=== PATIENT | male | born 1940 | race Caucasian/White ===

== ENCOUNTER 2021-02-09 08:47 | Emergency (ER) | payer MEDICARE, BC ==
[2021-02-09 09:13] VITALS: BP 154/70; PULSE 60
--- NOTE | 2021-02-09 09:34 | EDM.PDOC ---
ED HPI GENERAL MEDICAL PROBLEM - General Chief Complaint: Chest Pain Stated Complaint: CHEST PAIN Time Seen by Provider: 02/09/21 09:10 Source of Information: Reports: Patient History Limitations: Reports: No Limitations - History of Present Illness INITIAL COMMENTS - FREE TEXT/NARRATIVE: 81 YO WM PRESENTS TO ER COMPLAINING OF INTERMITTENT CHEST PAIN WHICH BEGAN AROUND 3AM TODAY. PT REPORTS PAIN WAS DIFFERENT THEN WHEN HE HAD HIS AMI IN 1992. PT REPORTS PAIN WAS MILD BUT COULDN'T DESCRIBE HOW IT FELT OTHER THAN IT FELT STRANGE IN HIS CHEST. PT REPORTS SYMPTOMS WENT AWAY BUT RETURNED THIS AM PROMPTING ER EVALUATION. PT DENIES TAKING ANY MEDICATION (NO NITRO) DURING THESE EVENTS. AT TIME OF INTERVIEW PATIENT DENIES ANY CHEST DISCOMFORT AND STATES IT RESOLVED AROUND 6AM TODAY. PT DENIES SHORTNESS OF BREATH, NO NAUSEA/VOMITING, NO RADIATING PAIN TO BACK OR ARMS. PT DENIES RECENT ILLNESS, NO COUGH/CONGESTION, NO FEVER/CHILLS, NO KNOWN COVID EXPOSURES. PT ALERT AND ORIENTED AND IN NO ACUTE DISTRESS. PT DROVE HIMSELF TO ER FOR EVALUATION. PT DENIES ANY ORTHOPNEA, NO PEDAL EDEMA, NO DYSPNEA ON EXERTION OR EXERCISE INTOLERANCE. Onset: Today Onset Time: 04:00 Location: Reports: Chest Quality: Reports: Ache Severity: Mild Improves with: Reports: None Worsens with: Reports: None Associated Symptoms: Reports: No Other Symptoms, Chest Pain. Denies: Cough, Diaphoresis, Fever/Chills, Nausea/Vomiting, Shortness of Breath, Weakness - Related Data Allergies Allergy/AdvReac Type Severity Reaction Status Date / Time No Known Drug Allergies Allergy Cannot Verified 02/09/21 09:14 Remember Home Meds: Home Meds Acetaminophen 325 mg PO Q4H PRN 03/01/14 [History] Aspirin [Halfprin] 81 mg PO DAILY PRN 03/01/14 [History] Cholecalciferol (Vitamin D3) [Vitamin D3] 1,000 units PO DAILY 03/01/14 [History] Clopidogrel [Plavix] 1 tab PO DAILY 03/01/14 [History] Cyanocobalamin/Folic AC/Vit B6 [B Complex-Folic Acid] 1 tab PO DAILY 03/01/14 [History] Fluticasone/Salmeterol [Advair 100-50] 1 puff INH BID 03/01/14 [History] Metoprolol Succinate 2 tab PO DAILY 03/01/14 [History] Nitroglycerin [Nitrostat] 1 tab SL Q5M PRN 03/01/14 [History] Isosorbide Mononitrate [Imdur] 30 mg PO DAILY 11/07/15 [History] metFORMIN HCl [Glucophage XR] 500 mg PO BEDTIME 11/07/15 [History] Cetirizine [ZyrTEC] 5 mg PO DAILY 02/09/21 [History] Chlorhexidine Gluconate 4% [Hibiclens] 1 applic TOP DAILY 02/09/21 [History] Clotrimazole [Clotrimazole 1%] 1 applic TOP ASDIRECTED 02/09/21 [History] Colestipol [Colestipol HCl] 2 gram PO BEDTIME 02/09/21 [History] Cyanocobalamin (Vitamin B-12) [Vitamin B-12] 100 mcg PO Q48H 02/09/21 [History] Levothyroxine 175 mcg PO DAILY 02/09/21 [History] Loperamide [Imodium AD] 2 mg PO Q1H PRN 02/09/21 [History] Multivitamin with Minerals [Multivitamins with Minerals] 1 tab PO DAILY 02/09/21 [History] Povidone-Iodine [Betadine] 1 applic TOP BID 02/09/21 [History] Simethicone 80 mg PO QID PRN 02/09/21 [History] Triamcinolone Acetonide [Triamcinolone Acetonide 0.1% Crm] 1 applic TOP BID 02/09/21 [History] atorvaSTATin [Lipitor] 40 mg PO DAILY 02/09/21 [History] Past Medical History HEENT History: Reports: Impaired Vision Cardiovascular History: Reports: Bypass, High Cholesterol, Hypertension, [place], Other (See Below) Other Cardiovascular History: 1992 [place] with double bypass Respiratory History: Reports: Other (See Below) Other Respiratory History: takes advair inhaler, unsure of reason why Gastrointestinal History: Reports: Bowel Obstruction, Irritable Bowel Syndrome, Other (See Below) Other Gastrointestinal History: ulcerative colitis Endocrine/Metabolic History: Reports: Diabetes, Type II, Hypothyroidism Hematologic History: Reports: B12 Deficiency Oncologic (Cancer) History: Reports: Colon Dermatologic History: Reports: Other (See Below) Other Dermatologic History: candidiasis of groin - Past Surgical History Cardiovascular Surgical History: Reports: Coronary Artery Bypass ED ROS GENERAL - Review of Systems Review Of Systems: See Below Constitutional: Reports: No Symptoms Respiratory: Reports: No Symptoms Cardiovascular: Reports: Chest Pain. Denies: Blood Pressure Problem, Dyspnea on Exertion, Lightheadedness, Palpitations, PND, Syncope Endocrine: Reports: No Symptoms GI/Abdominal: Reports: No Symptoms Musculoskeletal: Reports: No Symptoms Skin: Reports: No Symptoms Neurological: Reports: No Symptoms Psychiatric: Reports: No Symptoms Hematologic/Lymphatic: Reports: No Symptoms Immunologic: Reports: No Symptoms ED EXAM, GENERAL - Physical Exam Exam: See Below Exam Limited By: No Limitations General Appearance: Alert, WD/WN, No Apparent Distress Head: Atraumatic, Normocephalic Neck: Normal Inspection, Supple, Non-Tender, Full Range of Motion Respiratory/Chest: No Respiratory Distress, Lungs Clear, Normal Breath Sounds, No Accessory Muscle Use, Chest Non-Tender Cardiovascular: Normal Peripheral Pulses, Regular Rate, Rhythm, No Edema, No Gallop, No JVD, No Murmur, No Rub GI/Abdominal: Normal Bowel Sounds, Soft, Non-Tender, No Organomegaly, No Distention, No Abnormal Bruit, No Mass, Other (OSTOMY) Back Exam: Normal Inspection, Full Range of Motion, NT Extremities: Normal Inspection, Normal Range of Motion, Non-Tender, Normal Capillary Refill, No Pedal Edema Neurological: Alert, Oriented, CN II-XII Intact, Normal Cognition, Normal Gait, No Motor/Sensory Deficits Psychiatric: Normal Affect, Normal Mood Skin Exam: Warm, Dry, Intact, Normal Color, No Rash Lymphatic: No Adenopathy #1 Interpretation EKG Date: 02/09/21 Time: 08:59 Rhythm: NSR Rate (Beats/Min): 55 [place]: LAD-Left [place] Deviation P-Wave: Present QRS: Normal ST-T: Normal QT: Normal Course - Vital Signs Last Recorded V/S: Last Vital Signs Temp 97.3 F 02/09/21 09:09 Pulse 60 02/09/21 09:09 Resp 19 02/09/21 09:09 BP 154/70 H 02/09/21 09:09 Pulse Ox 98 02/09/21 09:09 - Orders/Labs/Meds Orders: Active Orders 24 hr Category Date Time Status EKG 12 Lead [EK] Stat Ther 02/09/21 09:03 Ordered Labs: Laboratory Tests 02/09/21 02/09/21 Range/Units 09:08 09:08 WBC 9.35 (5.00-10.00) 10^3/uL RBC 4.99 (4.50-6.00) 10^6/uL Hgb 14.9 (13.0-17.0) g/dL Hct 45.6 (40.0-52.0) % MCV 91.4 (82.0-92.0) fL MCH 29.9 (27.0-31.0) pg MCHC 32.7 (32.0-36.0) g/dL RDW 12.8 (11.5-14.5) % Plt Count 212 (150-400) 10^3/uL MPV 9.1 (7.4-10.4) fL Immature Gran % (Auto) 0.3 (0.0-5.0) % Neut % (Auto) 79.9 H (50.0-70.0) % Lymph % (Auto) 7.3 L (20.0-40.0) % [place] % (Auto) 9.0 H (2.0-8.0) % Eos % (Auto) 3.1 H (1.0-3.0) % Baso % (Auto) 0.4 (0.0-1.0) % Neut # (Auto) 7.47 H (2.50-7.00) 10^3/uL Lymph # (Auto) 0.68 L (1.00-4.00) 10^3/uL [place] # (Auto) 0.84 H (0.10-0.80) 10^3/uL Eos # (Auto) 0.29 (0.10-0.30) 10^3/uL Baso # (Auto) 0.04 (0.00-0.10) 10^3/uL Immature Gran # (Auto) 0.03 (0.00-0.50) 10^3/uL Sodium 141 (136-145) mmol/L Potassium 4.2 (3.5-5.1) mmol/L Chloride 106 (98-107) mmol/L Carbon Dioxide 20.9 L (21.0-32.0) mmol/L Anion Gap 18.3 H (5-15) mmol/L BUN 15 (7-18) mg/dL Creatinine 1.31 H (0.51-1.17) mg/dL Est Cr Clr Drug Dosing 35.64 mL/min Estimated GFR (MDRD) 52 mL/min Glucose 119 (70-140) mg/dL Calcium 8.7 (8.7-10.3) mg/dL Total Bilirubin 0.7 (0.2-1.0) mg/dL AST 26 (15-37) U/L ALT 19 (14-63) U/L Alkaline Phosphatase 96 (46-116) U/L Troponin I High Sens 9.700 (0-76.000) pg/mL Total Protein 6.8 (6.4-8.2) g/dL Albumin 3.55 (3.40-5.00) g/dL - Radiology Interpretation Free Text/Narrative:: CXR-NO ACUTE PROCESS; 9X8MM RIGHT LUNG BASE NODULAR OPACITY Departure - Departure Time of Disposition: 10:15 Disposition: Home, Self-Care 01 Condition: Good Clinical Impression: Pulmonary nodule Chest pain Qualifiers: Chest pain type: unspecified Qualified Code(s): R07.9 - Chest pain, unspecified Instructions: Pulmonary Nodule, [id number], Nonspecific Chest Pain, Adult, [id number] Referrals: Sylvie Way, [employer] [Primary Care Provider] - Forms: ED Department Discharge Additional Instructions: 1. DISCUSSED CASE WITH DEYANIRA STAHL WHO DISCUSSED WITH DR NYLA YEPEZ- OKAY TO DISCHARGE WITH FOLLOW UP THIS WEEK WITH SYLVIE STAHL 2. CT SCAN OUTPATIENT FOR PULMONARY NODULE EVALUATION 3. RETURN TO ER FOR WORSENING SYMPTOMS 4. OKAY TO TAKE YOUR NITRO IF CHEST PAIN CONTINUES Sepsis Event Note (ED) - Evaluation Sepsis Screening Result: No Definite Risk - Focused Exam Vital Signs: Vital Signs Temp Pulse Resp BP Pulse Ox 02/09/21 09:09 97.3 F 60 19 154/70 H 98 - My Orders Last 24 Hours: My Active Orders 02/09/21 09:03 EKG 12 Lead [EK] Stat - Assessment/Plan Last 24 Hours: My Active Orders 02/09/21 09:03 EKG 12 Lead [EK] Stat Assessment:: 1. CHEST PAIN 2. 9X8MM NODULAR DENSITY IN RIGHT LUNG BASE Plan: 1. DISCUSSED CASE WITH DEYANIRA STAHL WHO DISCUSSED WITH DR NYLA VÁSQUEZ TO DISCHARGE WITH FOLLOW UP THIS WEEK WITH SYLVIE STAHL 2. CT SCAN OUTPATIENT FOR PULMONARY NODULE EVALUATION 3. RETURN TO ER FOR WORSENING SYMPTOMS 4. OKAY TO TAKE YOUR NITRO IF CHEST PAIN CONTINUES
[2021-02-09 09:42] LABS: ANION GAP 18.3 mmol/L (5-15)
--- NOTE | 2021-02-09 10:11 | CR ---
[id number] RAD/RAD Chest PA And Lateral EXAM: RAD Chest PA And Lateral INDICATION: PAIN. COMPARISON: None. DISCUSSION/IMPRESSION: Cardiomediastinal silhouette is normal in size and contour. Median sternotomy. 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 9 x 8 mm hyperdense nodular opacity in the right lung base. Noncontrast chest CT is recommended for further evaluation. No evidence of pneumonia. Yemi Daugherty MD 02/09/21 1010 Thank you for allowing us to participate in the care of your patient.
== END 2021-02-09 10:55 | disposition home or self-care (01) ==
LOC: KA.ED 08:47
DX: R91.1 Solitary pulmonary nodule (principal); E78.00 Pure hypercholesterolemia, unspecified; I10 Essential (primary) hypertension; I25.2 Old myocardial infarction; E11.9 Type 2 diabetes mellitus without complications; E03.9 Hypothyroidism, unspecified; Z79.82 Long term (current) use of aspirin; Z79.02 Long term (current) use of antithrombotics/antiplatelets; Z79.84 Long term (current) use of oral hypoglycemic drugs; Z79.899 Other long term (current) drug therapy
CPT/HCPCS: 36415; 71046; 80053; 84484; 85025; 93005; 99285-25

== ENCOUNTER 2021-07-01 12:56 | Observation (INO) | payer MEDICARE, BC ==
[2021-07-01] MEDS ORDERED: Albuterol 0.083% 2.5 MG/3 ML Neb Soln INH PRN (15:31)
[2021-07-01] MEDS ORDERED: Acetaminophen 325 MG Tab PO PRN (15:31)
[2021-07-01] MEDS ORDERED: Nitroglycerin 0.4 MG Tab.SL SL PRN (15:31)
[2021-07-01] MEDS ORDERED: Loperamide 2 MG Cap PO PRN (15:42)
[2021-07-01] MEDS ORDERED: Non-Formulary Medication 1 Each (Cyanocobalamin (Vitamin B-12) [Vitamin B-12] 100 MCG Tabl PO SCH (15:45)
[2021-07-01] MEDS ORDERED: Non-Formulary Medication 1 Each (Colestipol 1 GM Tablet) PO SCH (21:00)
[2021-07-01] MEDS: Formoterol/Mometasone 100-5 MCG 8.8 GM Inhaler IH SCH (21:38)
[2021-07-02] MEDS: Levothyroxine 100 MCG Tab PO SCH ×2 (06:00→06:30)
[2021-07-02] MEDS: Levothyroxine 25 MCG Tab PO SCH ×2 (06:01→06:30)
[2021-07-02] MEDS: Formoterol/Mometasone 100-5 MCG 8.8 GM Inhaler IH SCH (08:11)
[2021-07-02] MEDS ORDERED: atorvaSTATin 40 MG Tab PO SCH (09:00)
[2021-07-02] MEDS ORDERED: Cholecalciferol (Vitamin D3) 25 MCG Tab PO SCH (09:00)
[2021-07-02] MEDS ORDERED: Isosorbide Mononitrate 30 MG Tab.ER PO SCH (09:00)
[2021-07-02] MEDS ORDERED: Non-Formulary Medication 1 Each (Colestipol 1 GM Tablet) PO SCH (09:00)
[2021-07-02] MEDS ORDERED: Clopidogrel 75 MG Tab PO SCH (09:00)
[2021-07-02] MEDS ORDERED: Vitamin B Complex Tab PO SCH (09:00)
[2021-07-02 11:24] VITALS: BP 120/60; PULSE 50
== END 2021-07-02 13:05 | disposition home or self-care (01) ==
LOC: KA.MS 13:51
PROVIDERS: ADMIT Nurse Practitioner Family; ATTEND Nurse Practitioner Family
DX: R00.1 Bradycardia, unspecified (principal); R53.83 Other fatigue; E03.9 Hypothyroidism, unspecified; I25.10 Atherosclerotic heart disease of native coronary artery without angina pectoris; E78.5 Hyperlipidemia, unspecified; E11.22 Type 2 diabetes mellitus with diabetic chronic kidney disease; I12.9 Hypertensive chronic kidney disease with stage 1 through stage 4 chronic kidney disease, or unspecified chronic kidney disease; J43.8 Other emphysema; E53.8 Deficiency of other specified B group vitamins; H35.30 Unspecified macular degeneration; K51.90 Ulcerative colitis, unspecified, without complications; K52.9 Noninfective gastroenteritis and colitis, unspecified; G31.84 Mild cognitive impairment of uncertain or unknown etiology; N18.31 Chronic kidney disease, stage 3a; H91.93 Unspecified hearing loss, bilateral; Z20.822 Contact with and (suspected) exposure to COVID-19; Z93.3 Colostomy status; Z95.1 Presence of aortocoronary bypass graft; Z86.31 Personal history of diabetic foot ulcer; Z85.038 Personal history of other malignant neoplasm of large intestine; Z79.51 Long term (current) use of inhaled steroids; Z79.84 Long term (current) use of oral hypoglycemic drugs; Z79.890 Hormone replacement therapy; Z79.82 Long term (current) use of aspirin; Z79.02 Long term (current) use of antithrombotics/antiplatelets; Z79.899 Other long term (current) drug therapy
CPT/HCPCS: 36415; 84443; 84484; A9270-GY; G0378; G0379

== ENCOUNTER 2021-10-16 09:11 | Emergency (ER) | payer MEDICARE, BC ==
[2021-10-16 09:47] LABS: ANION GAP 12.7 mmol/L (5-15); CHLORIDE,CL 102 mmol/L (98-107); SODIUM,NA 136 mmol/L (136-145)
[2021-10-16 09:49] LABS: ESTIMATED GFR 61 mL/min (>=60)
[2021-10-16] MEDS ORDERED: Sodium Chloride 0.9% 1,000 ML IV ONE (10:24)
[2021-10-16] MEDS ORDERED: Iopamidol 612 MG/ML 75 ML Bottle IV ONE (10:51)
[2021-10-16] MEDS ORDERED: Iopamidol 755 Mg/ML 75 ML Bottle IVPUSH ONE (10:55)
[2021-10-16] MEDS ORDERED: Sodium Chloride 0.9% 50 ML IV SCH (11:00)
[2021-10-16] MEDS ORDERED: Tamsulosin 0.4 MG Cap.ER PO ONE (12:30)
[2021-10-16] MEDS ORDERED: Tamsulosin 0.4 MG Cap.ER ONE (14:45)
[2021-10-16] MEDS ORDERED: Ondansetron 4 MG/2 ML SDV IVPUSH ONE (14:58)
[2021-10-16] MEDS ORDERED: Sodium Chloride 0.9% 1,000 ML IV SCH (15:00)
[2021-10-16 15:10] VITALS: BP 168/82; PULSE 53
== END 2021-10-16 15:25 ==
LOC: KA.ED 09:11
DX: N13.2 Hydronephrosis with renal and ureteral calculous obstruction (principal); R00.1 Bradycardia, unspecified; E11.65 Type 2 diabetes mellitus with hyperglycemia; E78.00 Pure hypercholesterolemia, unspecified; J44.9 Chronic obstructive pulmonary disease, unspecified; I25.2 Old myocardial infarction; I12.9 Hypertensive chronic kidney disease with stage 1 through stage 4 chronic kidney disease, or unspecified chronic kidney disease; N18.2 Chronic kidney disease, stage 2 (mild); E03.9 Hypothyroidism, unspecified; Z79.899 Other long term (current) drug therapy; Z79.84 Long term (current) use of oral hypoglycemic drugs
CPT/HCPCS: 36415; 71045; 74177; 80053; 81001; 82150; 83605; 83690; 84484; 85025; 86140; 93010; 96361; 96374; 99284; 99285-25; A9270-GY; J2405; J7030; Q9967

== ENCOUNTER 2024-04-10 10:00 | Emergency (ER) | payer MEDICARE, BC ==
[2024-04-10 10:23] VITALS: BP 168/80; PULSE 53
[2024-04-10 10:27] LABS: BASOPHILS ABSOLUTE AUTO 0.05 10^3/uL (0.00-0.10); BASOPHILS PERCENT AUTO 0.4 % (0.0-1.0); EOSINOPHILS ABSOLUTE AUTO 0.45 10^3/uL (0.10-0.30); EOSINOPHILS PERCENT AUTO 3.7 % (1.0-3.0); HEMOGLOBIN 15.4 g/dL (13.0-17.0); IMMATURE GRAN ABSOLUTE AUTO 0.05 10^3/uL (0.00-0.04); IMMATURE GRAN PERCENT AUTO 0.4 % (0.0-0.4); LYMPHOCYTES ABSOLUTE AUTO 0.93 10^3/uL (1.00-4.00); LYMPHOCYTES PERCENT AUTO 7.6 % (20.0-40.0); MEAN CORPUSCULAR HEMOGLOBIN 28.2 pg (27.0-31.0); MEAN CORPUSCULAR HGB CONC 32.8 g/dL (32.0-36.0); MEAN CORPUSCULAR VOLUME 86.1 fL (82.0-92.0); MEAN PLATELET VOLUME 9.3 fL (7.4-10.4); MONOCYTES ABSOLUTE AUTO 1.15 10^3/uL (0.10-0.80); MONOCYTES PERCENT AUTO 9.4 % (2.0-8.0); NEUTROPHILS ABSOLUTE AUTO 9.54 10^3/uL (2.50-7.00); NEUTROPHILS PERCENT AUTO 78.5 % (50.0-70.0); PLATELET COUNT,PLT 252 10^3/uL (150-400); RED BLOOD CELL COUNT 5.46 10^6/uL (4.50-6.00); RED CELL DISTRIBUTION WIDTH 14.3 % (11.5-14.5); WHITE BLOOD CELL COUNT,WBC 12.17 10^3/uL (5.00-10.00)
[2024-04-10] MEDS: Sodium Chloride 0.9% 10 ML Syringe FLUSH PRN (10:30)
[2024-04-10 10:42] LABS: ALBUMIN 3.57 g/dL (3.40-5.00); ANION GAP 18.8 mmol/L (5-15); BILIRUBIN TOTAL 0.7 mg/dL (0.2-1.0); CALCIUM 9.6 mg/dL (8.7-10.3); CARBON DIOXIDE,CO2 22.6 mmol/L (21.0-32.0); CREATININE 1.03 mg/dL (0.51-1.17); EST CRCL DRUG DOSING (CG) 39.47 mL/min; PROTEIN TOTAL,TP 7.3 g/dL (6.4-8.2)
[2024-04-10 10:45] LABS: POTASSIUM,K 4.4 mmol/L (3.5-5.1)
[2024-04-10] MEDS: Iopamidol 755 Mg/ML 100 ML Bottle IV ONE (11:23)
[2024-04-10] MEDS: Sodium Chloride 0.9% 50 ML IV ONE (11:24)
[2024-04-10] MEDS: Sodium Chloride 0.9% 500 ML IV SCH (11:26)
[2024-04-10] MEDS: Morphine 2 MG/ML SYRINGE IVPUSH ONE (11:27)
== END 2024-04-10 13:28 | disposition home or self-care (01) ==
LOC: KA.ED 10:00
DX: N13.2 Hydronephrosis with renal and ureteral calculous obstruction (principal); K80.20 Calculus of gallbladder without cholecystitis without obstruction; I25.2 Old myocardial infarction; I12.9 Hypertensive chronic kidney disease with stage 1 through stage 4 chronic kidney disease, or unspecified chronic kidney disease; N18.2 Chronic kidney disease, stage 2 (mild); E78.00 Pure hypercholesterolemia, unspecified; J44.9 Chronic obstructive pulmonary disease, unspecified; E11.22 Type 2 diabetes mellitus with diabetic chronic kidney disease; E03.9 Hypothyroidism, unspecified; Z95.5 Presence of coronary angioplasty implant and graft; Z79.84 Long term (current) use of oral hypoglycemic drugs; Z79.82 Long term (current) use of aspirin; Z79.890 Hormone replacement therapy; Z79.899 Other long term (current) drug therapy
CPT/HCPCS: 74177; 80053; 83690; 85025; 96361; 96374; 99284-25; J2270; J3490; J7040; Q9967

== ENCOUNTER 2024-04-23 18:23 | Emergency (ER) | payer MEDICARE, BC ==
[2024-04-23] MEDS: Aspirin 81 MG Tab.Chew PO ONE (18:35)
[2024-04-23] MEDS: Sodium Chloride 0.9% 10 ML Syringe FLUSH PRN (18:52)
[2024-04-23 18:53] LABS: BASOPHILS ABSOLUTE AUTO 0.04 10^3/uL (0.00-0.10); BASOPHILS PERCENT AUTO 0.6 % (0.0-1.0); EOSINOPHILS ABSOLUTE AUTO 0.66 10^3/uL (0.10-0.30); EOSINOPHILS PERCENT AUTO 9.1 % (1.0-3.0); IMMATURE GRAN ABSOLUTE AUTO 0.04 10^3/uL (0.00-0.04); IMMATURE GRAN PERCENT AUTO 0.6 % (0.0-0.4); LYMPHOCYTES ABSOLUTE AUTO 1.42 10^3/uL (1.00-4.00); LYMPHOCYTES PERCENT AUTO 19.7 % (20.0-40.0); MEAN CORPUSCULAR HGB CONC 31.7 g/dL (32.0-36.0); MEAN CORPUSCULAR VOLUME 88.4 fL (82.0-92.0); MEAN PLATELET VOLUME 9.1 fL (7.4-10.4); MONOCYTES ABSOLUTE AUTO 1.15 10^3/uL (0.10-0.80); MONOCYTES PERCENT AUTO 15.9 % (2.0-8.0); NEUTROPHILS ABSOLUTE AUTO 3.91 10^3/uL (2.50-7.00); NEUTROPHILS PERCENT AUTO 54.1 % (50.0-70.0); PLATELET COUNT,PLT 265 10^3/uL (150-400); RED BLOOD CELL COUNT 4.64 10^6/uL (4.50-6.00); RED CELL DISTRIBUTION WIDTH 15.1 % (11.5-14.5); WHITE BLOOD CELL COUNT,WBC 7.22 10^3/uL (5.00-10.00)
[2024-04-23 19:02] VITALS: BP 138/66
[2024-04-23 19:11] LABS: ALBUMIN 3.23 g/dL (3.40-5.00); ANION GAP 12.6 mmol/L (5-15); BILIRUBIN TOTAL 0.3 mg/dL (0.2-1.0); CARBON DIOXIDE,CO2 27.2 mmol/L (21.0-32.0); CREATININE 0.88 mg/dL (0.51-1.17); EST CRCL DRUG DOSING (CG) 49.35 mL/min; POTASSIUM,K 4.8 mmol/L (3.5-5.1); PROTEIN TOTAL,TP 6.8 g/dL (6.4-8.2)
[2024-04-24 00:54] VITALS: PULSE 50
== END 2024-04-23 19:56 ==
LOC: KA.ED 18:23
DX: I20.9 Angina pectoris, unspecified (principal); I12.9 Hypertensive chronic kidney disease with stage 1 through stage 4 chronic kidney disease, or unspecified chronic kidney disease; N18.2 Chronic kidney disease, stage 2 (mild); I25.2 Old myocardial infarction; E78.00 Pure hypercholesterolemia, unspecified; J44.9 Chronic obstructive pulmonary disease, unspecified; E11.22 Type 2 diabetes mellitus with diabetic chronic kidney disease; E03.9 Hypothyroidism, unspecified; Z95.1 Presence of aortocoronary bypass graft; Z95.5 Presence of coronary angioplasty implant and graft; Z79.899 Other long term (current) drug therapy; Z79.82 Long term (current) use of aspirin; Z79.890 Hormone replacement therapy; Z79.51 Long term (current) use of inhaled steroids; Z79.2 Long term (current) use of antibiotics; Z79.84 Long term (current) use of oral hypoglycemic drugs
CPT/HCPCS: 71045; 80053; 84484; 85025; 93010; 99284; 99285; A9270-GY

== ENCOUNTER 2024-05-15 16:48 | Inpatient (IN) | payer MEDICARE, BC ==
[2024-05-15] MEDS ORDERED: Sodium Chloride 0.9% 10 ML Syringe FLUSH PRN (17:05)
[2024-05-15] MEDS: Ketorolac 30 MG/ML SDV IVPUSH ONE (17:57)
[2024-05-15] MEDS: Sodium Chloride 0.9% 500 ML IV SCH (17:57)
[2024-05-15] MEDS: Iopamidol 755 Mg/ML 100 ML Bottle IV ONE (18:04)
[2024-05-15] MEDS: Sodium Chloride 0.9% 50 ML IV ONE (18:04)
[2024-05-15 18:20] LABS: APPEARANCE,URINE CLEAR (CLEAR); BILIRUBIN,URINE NEGATIVE (NEGATIVE); COLOR,URINE YELLOW (YELLOW); GLUCOSE,URINE NEGATIVE (NEGATIVE); KETONES,URINE NEGATIVE (NEGATIVE); LEUKOCYTE ESTERASE,URINE NEGATIVE (NEGATIVE); NITRITE,URINE NEGATIVE (NEGATIVE); OCCULT BLOOD,URINE NEGATIVE (NEGATIVE); PH,URINE 5.5 (5.0-9.0); PROTEIN,URINE TRACE mg/dL (NEGATIVE); UROBILINOGEN,URINE 0.2 E.U./dL (0.2-1.0)
[2024-05-15 18:21] LABS: RBC,URINE 0-5 /HPF (0-5); WBC,URINE 0-5 /HPF (0-5)
[2024-05-15 18:25] LABS: BACTERIA,URINE RARE /HPF (NONE TO FEW); EPITHELIAL CELLS,URINE RARE /LPF; MUCUS,URINE RARE /LPF (NEGATIVE)
[2024-05-15] MEDS: Benzocaine 20% Topical Spray UD MUCMEM ONE (19:40)
[2024-05-15] MEDS ORDERED: Ondansetron 4 MG/2 ML SDV IV PRN (22:37)
[2024-05-15] MEDS ORDERED: Polyethylene Glycol 3350 Powder 17 GM Packet PO PRN (22:37)
[2024-05-15] MEDS ORDERED: LOPERAMIDE HCL 2 MG PO PRN (22:42)
[2024-05-16] MEDS: Ferrous Sulfate 325 MG Tab PO SCH (00:37)
[2024-05-16] MEDS: Ascorbic Acid 500 MG Tab PO SCH (00:37)
[2024-05-16] MEDS: Sodium Chloride 0.9% 1,000 ML IV SCH (06:35)
[2024-05-16] MEDS: Levothyroxine 100 MCG Tab PO SCH (06:35)
[2024-05-16] MEDS: Omeprazole 20 MG Cap.CR PO SCH (06:35)
[2024-05-16 07:00] LABS: BASOPHILS ABSOLUTE AUTO 0.03 10^3/uL (0.00-0.10); BASOPHILS PERCENT AUTO 0.6 % (0.0-1.0); EOSINOPHILS ABSOLUTE AUTO 0.25 10^3/uL (0.10-0.30); EOSINOPHILS PERCENT AUTO 4.8 % (1.0-3.0); HEMOGLOBIN 13.2 g/dL (13.0-17.0); IMMATURE GRAN ABSOLUTE AUTO 0.01 10^3/uL (0.00-0.04); IMMATURE GRAN PERCENT AUTO 0.2 % (0.0-0.4); LYMPHOCYTES ABSOLUTE AUTO 0.83 10^3/uL (1.00-4.00); LYMPHOCYTES PERCENT AUTO 15.9 % (20.0-40.0); MEAN CORPUSCULAR HEMOGLOBIN 28.3 pg (27.0-31.0); MEAN CORPUSCULAR HGB CONC 32.2 g/dL (32.0-36.0); MONOCYTES ABSOLUTE AUTO 0.69 10^3/uL (0.10-0.80); MONOCYTES PERCENT AUTO 13.2 % (2.0-8.0); NEUTROPHILS PERCENT AUTO 65.3 % (50.0-70.0); PLATELET COUNT,PLT 201 10^3/uL (150-400); RED BLOOD CELL COUNT 4.66 10^6/uL (4.50-6.00); RED CELL DISTRIBUTION WIDTH 14.4 % (11.5-14.5); WHITE BLOOD CELL COUNT,WBC 5.21 10^3/uL (5.00-10.00)
[2024-05-16 07:16] LABS: ANION GAP 11.6 mmol/L (5-15); CALCIUM 8.5 mg/dL (8.7-10.3); CARBON DIOXIDE,CO2 26.5 mmol/L (21.0-32.0); CREATININE 0.88 mg/dL (0.51-1.17); EST CRCL DRUG DOSING (CG) 45.43 mL/min; POTASSIUM,K 4.1 mmol/L (3.5-5.1)
[2024-05-16] MEDS: Acetaminophen 325 MG Tab PO PRN (08:35)
[2024-05-16] MEDS: Enoxaparin 40 MG/0.4 ML Syringe SUBCUT SCH (08:35)
[2024-05-16] MEDS: Lutein/Minerals/Vitamins A, C & E Tab PO SCH (08:35)
[2024-05-16] MEDS: Zinc Sulfate 220 MG Cap PO SCH (08:35)
[2024-05-16] MEDS: Multivitamins with Minerals/Iron/Folic Acid/Lycopene Tab PO SCH (08:36)
[2024-05-16] MEDS: Cetirizine 10 MG Tab PO SCH (08:36)
[2024-05-16] MEDS: Aspirin 81 MG Tab.EC PO SCH (08:37)
[2024-05-16] MEDS: Isosorbide Dinitrate 10 MG Tab PO SCH (08:38)
[2024-05-16] MEDS: Clopidogrel 75 MG Tab PO SCH (08:38)
[2024-05-16] MEDS ORDERED: Non-Formulary Medication 1 Each (Colestipol 1 GM Tablet) PO SCH ×2 (09:00→21:00)
[2024-05-16] MEDS ORDERED: EMOLLIENT COMBINATION NO 40 TOP SCH (09:00)
[2024-05-16] MEDS: Sodium Chloride 0.9% 50 ML IV ONE (10:09)
[2024-05-16] MEDS: Iopamidol 755 Mg/ML 100 ML Bottle IV ONE (10:10)
[2024-05-16] MEDS: Non-Formulary Medication 1 Each (Amino Acids/Protein Hydrolys [Liquacel Liquid Protein] 96 PO SCH (10:50)
[2024-05-16] MEDS: Formoterol/Mometasone 200-5 MCG 8.8 GM Inhaler INH SCH (20:00)
[2024-05-16] MEDS: atorvaSTATin 40 MG Tab PO SCH (20:00)
[2024-05-16] MEDS ORDERED: metFORMIN 500 MG Tab.ER PO SCH (21:00)
[2024-05-16] MEDS ORDERED: Non-Formulary Medication 1 Each (Ketoconazole [Ketoconazole] 120 ML Shampoo) TOP SCH (22:42)
[2024-05-17 09:51] VITALS: BP 134/55; PULSE 60
[2024-05-17] MEDS ORDERED: metFORMIN 500 MG Tab.ER PO SCH (21:00)
== END 2024-05-17 10:05 | disposition home or self-care (01) | DRG 390 ==
LOC: KA.ED 16:48 → KA.MS 20:35
PROVIDERS: ADMIT Internal Medicine; ATTEND Internal Medicine
DX: K56.609 Unspecified intestinal obstruction, unspecified as to partial versus complete obstruction (principal); H54.7 Unspecified visual loss; E78.00 Pure hypercholesterolemia, unspecified; J44.9 Chronic obstructive pulmonary disease, unspecified; N18.2 Chronic kidney disease, stage 2 (mild); I12.9 Hypertensive chronic kidney disease with stage 1 through stage 4 chronic kidney disease, or unspecified chronic kidney disease; F15.90 Other stimulant use, unspecified, uncomplicated; E03.9 Hypothyroidism, unspecified; E11.65 Type 2 diabetes mellitus with hyperglycemia; E11.22 Type 2 diabetes mellitus with diabetic chronic kidney disease; H91.90 Unspecified hearing loss, unspecified ear; Z86.16 Personal history of COVID-19; Z90.89 Acquired absence of other organs; Z85.038 Personal history of other malignant neoplasm of large intestine; Z79.1 Long term (current) use of non-steroidal anti-inflammatories (NSAID); Z79.84 Long term (current) use of oral hypoglycemic drugs; Z79.02 Long term (current) use of antithrombotics/antiplatelets; I25.2 Old myocardial infarction; Z95.1 Presence of aortocoronary bypass graft; Z87.891 Personal history of nicotine dependence; Z79.82 Long term (current) use of aspirin; Z79.899 Other long term (current) drug therapy; Z95.5 Presence of coronary angioplasty implant and graft; Z98.890 Other specified postprocedural states
CPT/HCPCS: 36415; 43752; 71045; 74018; 74177; 80048; 81001; 85025; 96361; 96374; 99285-25; A9270-GY; J1650; J1885; J3490; J7030; J7040; Q3014; Q9967